=== PATIENT | male | born 1940 | race Caucasian/White ===

== ENCOUNTER 2020-05-09 21:49 | Inpatient (IN) | payer BC, MEDICARE ==
[~2020-05-09] VITALS: Ht 172.7 cm; Wt 66.2 kg
[2020-05-09] MEDS ORDERED: CEFTRIAXONE 1GM BAG (ER ONLY) 50 ML IV ONE ×2 (22:00→22:08)
[2020-05-09] MEDS ORDERED: LEVOFLOXACIN 750 MG /D5W 150ML 150 ML IV ONE ×2 (22:00→22:07)
[2020-05-09] MEDS ORDERED: LIDOCAINE 2% JEL UROJET 10 ML MM ONE ×2 (22:02→22:30)
[2020-05-09] MEDS ORDERED: IV NS 0.9% 1,000 ML BAG IV ONE (22:30)
[2020-05-09] MEDS ORDERED: METOPROLOL TARTRATE INJ 5 MG/5 ML AMPUL IV ONE (22:30)
[2020-05-09] MEDS ORDERED: ACETAMINOPHEN 650 MG/SUPP.RECT RC ONE ×2 (22:30→22:40)
[2020-05-09 22:39] LABS: CALCIUM, SERUM 8.1 mg/dL (8.5-10.1); CARBON DIOXIDE 24 mmol/L (21-32); CHLORIDE 102 mmol/L (98-107); CREATININE 2.3 mg/dL (0.6-1.3); GLUCOSE 85 mg/dL (74-106); POTASSIUM 3.3 mmol/L (3.5-5.1); SODIUM SERUM 137 mmol/L (136-145); UREA NITROGEN, BLOOD 33 mg/dL (7-18)
[2020-05-09 22:43] LABS: BILIRUBIN,URINE Negative (NEGATIVE); BLOOD, URINE Large Ery/uL (NEGATIVE); COLOR,URINE YELLOW (YELLOW); LEUKOCYTE ESTERASE ,URINE Moderate (NEGATIVE); NITRITE, URINE Negative (NEGATIVE); PROTEIN,URINE 30 mg/dl (NEGATIVE); UGLUCOSE Negative (NEGATIVE); UROBILINOGEN,URINE 0.2 EU/dL (0.2)
[2020-05-09 22:55] LABS: ALANINE AMINOTRANSFERASE 21 U/L (12-78); ALKALINE PHOSPHATASE 100 U/L (46-116); ASPARTATE AMINOTRANSFERASE 34 U/L (15-37); B-TYPE NATRIURETIC PEPTIDE 41190 PG/ML (0-125); BASOPHILS # (AUTO) 0.2 /CMM (0.0-0.2); BASOPHILS % (AUTO) 0.9 % (0.0-2.0); BILIRUBIN,DIRECT 0.2 mg/dL (0.0-0.2); BILIRUBIN,TOTAL 0.4 mg/dL (0.2-1.0); HEMATOCRIT 28 % (39-51); HEMOGLOBIN 9.3 g/dL (13.5-17.5); LYMPHOCYTES # (AUTO) 0.3 /CMM (0.8-4.8); LYMPHOCYTES % (AUTO) 1.6 % (20.0-44.0); MEAN CORPUSCULAR HGB CONC 33 g/dl (31.0-36.0); MEAN CORPUSCULAR VOLUME 104 fL (80-96); MONOCYTES # (AUTO) 0.5 /CMM (0.1-1.30); MONOCYTES % (AUTO) 3.3 % (2.0-12.0); NEUTROPHILS # (AUTO) 15.2 /CMM (1.8-8.9); NEUTROPHILS % (AUTO) 94.2 % (43.0-81.0); PLATELET COUNT (AUTO) 161 /CMM (150-450); RED BLOOD CELL COUNT(AUTO) 2.68 MIL/uL (4.5-6.0); TOTAL PROTEIN, SERUM 4.8 g/dL (6.4-8.2); WHITE BLOOD COUNT (AUTO) 16.2 K/uL (4.3-11.0)
--- NOTE | 2020-05-09 22:58 | NUR ---
PT BROUGHT BY RADIOLOGY TO CT PER ACLS PROTOCOL
[2020-05-09] MEDS ORDERED: ENOXAPARIN SODIUM 60 MG/0.6 ML DISP.SYRIN SQ ONE ×2 (23:00→23:53)
--- NOTE | 2020-05-09 23:03 | NUR ---
RETURNED FROM CT.
--- NOTE | 2020-05-09 23:07 | NUR ---
RT AT BEDSIDE FOR ABG
--- NOTE | 2020-05-09 23:10 | NUR ---
RAPID GLENIS PATTERSON MD AWARE
[2020-05-09 23:14] LABS: ABG BASE EXCESS -0.9 mmol/L; ABG OXYGEN SATURATION 95.5 % (92.0-98.5); ABG PCO2 28.9 mmHg (35.0-45.0); ABG PH 7.496 (7.350-7.450); ABG PO2 81.5 mmHg (75.0-100.0); AaDO2 98.4 mmHg; COHb 0.3 % (0.5-1.5); MetHb 0.5 % (0.0-1.5); O2Hb 94.7 % (94.0-97.0); SITE, ABG Right Radial; VENT MODE, BG 3 L NC
[2020-05-09 23:21] LABS: DIGOXIN 0.54 ng/mL (0.90-2.00); RBC,URINE 21-50 /HPF (0-2); WBC,URINE TOO NUMEROUS TO COUN /HPF (0-3)
[2020-05-09 23:22] LABS: BACTERIA,URINE 4+ /HPF (None Seen); SQUAMOUS EPITHELIAL CELL,UR Few /HPF (None Seen)
[2020-05-09 23:27] LABS: THYROID STIMULATING HORMONE 8.946 uIU/mL (0.358-3.74)
[2020-05-09] MEDS ORDERED: DIGOXIN INJ 0.5 MG/2 ML AMPUL ONE (23:49)
[2020-05-10] VITALS (77 sets, daily range): BP systolic 54–174; BP diastolic 33–94
[2020-05-10] MEDS ORDERED: DIGOXIN INJ 0.5 MG/2 ML AMPUL IV ONE
--- NOTE | 2020-05-10 00:54 | NUR ---
ICU 256
--- NOTE | 2020-05-10 00:58 | NUR ---
AT BEDSIDE FOR CENTRAL LINE PLACEMENT.
[2020-05-10] MEDS ORDERED: IV NS 0.9% 1,000 ML IV PRN (01:00)
[2020-05-10] MEDS ORDERED: NOREPINEPHRINE 4 MG/4 ML AMPUL IV ONE ×3 (01:12→05:52)
--- NOTE | 2020-05-10 01:12 | NUR ---
CENTRAL LINE PLACEMENT AT RIGHT FEMORAL TRIPLE LUMEN.
[2020-05-10] MEDS: NOREPINEPHRINE 8 MG in IV NS 0.9% 250 ML IV PRN ×4 (01:20→08:36)
--- NOTE | 2020-05-10 01:37 | NUR ---
REPORT GIVEN TO MICHELLE BLACKWOOD FOR CHELSI.
--- NOTE | 2020-05-10 01:52 | NUR ---
PATIENT TAKEN UP TO ICU FOR CHELSI.
[2020-05-10] MEDS ORDERED: VANCOMYCIN 1 GM in IV D5W 250ml IV ONE (02:00)
--- NOTE | 2020-05-10 02:00 | NUR ---
RN ADMITTING NOTE RECEIVED PATIENT FROM ER VIA GURNEY; ADMITTING DIAGNOSIS OF SEPSIS WITH SEPTIC SHOCK, AND PNEUMONIA R/O COVID19; PCR RESULTS PENDING. PATIENT AWAKE, ALERT AND ORIENTED X2. DENIES PAIN. IN NO S/SX OF ACUTE DISTRESS AT THIS TIME. PATIENT'S BREATHING IS EVEN AND UNLABORED. PATIENT IS ON 4 L OF OXYGEN VIA NC; TOLERATING WELL.SATURATING 99% AT THE MOMENT. PATIENT ON BEDSIDE MONITOR READING AFIB UNCONTROLLED, HR IS 113. NOTED IV SITE AT LFA 18G, RAC 20G, AND TLC AT R FEMORAL,FLUSHING AND PATENT, WITH NOREPINEPHRINE INFUSING AT 1 MCG/KG/MIN. NO S/S OF INFECTION NOTED. NOTED BRUISING AT B SHOULDERS AND CHEST AREA, DTI AT L HIP, REDNESS AT SACRUM, AND ULCER AT TIP OF PENIS. PHOTOS TAKEN AND PLACED IN CHART. WOUND CONSULT REQUESTED. PATIENT KEPT CLEAN , DRY AND COMFORTABLE. SAFETY MEASURES IMPLEMENTED PER PROTOCOL. PATIENT BED ALARM IS ON. HEAD OF BED ELEVATED. BED IS LOCKED, IN LOWEST POSITION AND SIDE RAILS UP. CALL LIGHT WITHIN REACH OF THE PATIENT. APPROPRIATE ISOLATION PRECAUTIONS IN PLACE. WILL CONTINUE TO MONITOR AND REASSESS FOR ANY CHANGES. WILL ATTEND TO ALL MD ADMITTING ORDERS.
[2020-05-10] MEDS ORDERED: VANCOMYCIN 1 GM VIAL ONE (02:37)
[2020-05-10] MEDS ORDERED: NOREPINEPHRINE 8MG/250ML RTU 250 ML IV ONE (03:09)
[2020-05-10] MEDS ORDERED: PIPERACILLIN /TAZOBACTAM 3.375 G VIAL IV ONE (05:09)
[2020-05-10] MEDS ORDERED: PIPERACILLIN /TAZOBACTAM 3.375 G in IV D5W 50 ML IV ONE (06:00)
--- NOTE | 2020-05-10 07:15 | NUR ---
RN NOTE PATIENT REMAINS IN ROOM. NO SIGNS OF RESPIRATORY DISTRESS. SATURATING >95 ON 4L OXYGEN. NOREPINEPHRINE INFUSING AT 0.7 MCG/KG, AND NS AT 70 ML/HR. NPO STATUS MAINTAINED. SAFETY MEASURES IMPLEMENTED, BED IN LOWEST POSITION, LOCKED, SIDE RAILS UP, CALL LIGHT WITHIN REACH. ALL NEEDS AND ORDERS ADDRESSED DURING THE SHIFT. ALL DUE MEDS GIVEN ORDERED. PATIENT KEPT CLEAN AND COMFORTABLE WITHIN THE SHIFT. ENDORSED TO ALEX BOWMAN RN FOR CONTINUATION OF CARE.
--- NOTE | 2020-05-10 08:00 | NUR ---
RN NOTE PATIENT IN BED . SLEEPING BUT AROUSABLE, RESPONSE TO VERBAL COMMAND NO SIGNS OF RESPIRATORY DISTRESS. SATURATING 99% ON 4L OXYGEN. NOREPINEPHRINE INFUSING AT 0.7 MCG/KG, AND NS AT 70 ML/HR. NPO STATUS MAINTAINED. SAFETY MEASURES IMPLEMENTED, BED IN LOWEST POSITION, LOCKED, SIDE RAILS UP, CALL LIGHT WITHIN REACH. PATIENT KEPT CLEAN AND COMFORTABLE ON TELE MONITOR AFIB HR 116 WITH AGRCIA CATH TO GRAVITY WITH HEMATURIA NOTED , STILL BLEEDING AT PENIS NOTED , BOTH LOWER EXTREMITIES WITH EDEMA KEEP ELEVATED TOLERATED, LT FA RT AC RT FEMORAL TLC I PLACE AND FLUSHED WELL, ON LEVOPHED DRIP ORDERED REPORTED TO DR BARGER THAT TROPONIN .384 AND ON EPIQUIN PO UNABLE TO TAKE PO AT THIS TIME, ON NPO STATUS , WILL CONT TO MONITOR
[2020-05-10] MEDS: PANTOPRAZOLE 40 MG VIAL IV SCH (08:01)
[2020-05-10] MEDS ORDERED: ACET-2605 PO (08:52)
[2020-05-10] MEDS ORDERED: AMIN30LI2 PO (08:52)
[2020-05-10] MEDS ORDERED: LEVO50TA8 PO (08:52)
[2020-05-10] MEDS ORDERED: ACID1TAB12 PO (08:52)
[2020-05-10] MEDS ORDERED: APIX5TAB PO (08:52)
[2020-05-10] MEDS ORDERED: ACET-868 PO (08:52)
[2020-05-10] MEDS ORDERED: DOCU-141 PO (08:52)
[2020-05-10] MEDS ORDERED: TAMS-12 PO (08:52)
[2020-05-10] MEDS ORDERED: DIGO125T PO (08:52)
[2020-05-10] MEDS ORDERED: CRAN425C6 PO (08:52)
[2020-05-10] MEDS ORDERED: HYDR-4076 PO (08:52)
[2020-05-10] MEDS ORDERED: APIXABAN 5 MG TABLET PO SCH (09:00)
[2020-05-10] MEDS: HYDROCORTISONE SOD SUCCINATE 100 MG/2 ML VIAL IV SCH ×2 (09:21→12:47)
[2020-05-10] MEDS: ENOXAPARIN SODIUM 60 MG/0.6 ML DISP.SYRIN SQ SCH (09:22)
[2020-05-10] MEDS: PIPERACILLIN /TAZOBACTAM 3.375 G in IV D5W 50 ML IV SCH ×3 (11:01→23:40)
--- NOTE | 2020-05-10 12:00 | NUR ---
landscape horticulture instructor note dr Acuna at bedside, notified that bp 82/58 on Levophed drip with order to cont Levophed with titration keep map 65, aware that trop .384 and urine with cloudy and hematuria and some blood at penis area, phone number of daughter Angeles given to dr Acuna, he will call her per her request
--- NOTE | 2020-05-10 14:00 | NUR ---
AVIAN KEEPER NOTE REPORTED TO DR DAVIS TELEMARKETING SUPERVISOR THAT URINE OUT PUT ABOUT 100 ML WITH CLOUDY HEMATURIA STATED THAT WILL CHECK IT OUT
--- NOTE | 2020-05-10 14:40 | NUR ---
OPTOMETRIST PRESIDENT/PRACTICE OWNER NOTE REPORTED TO DR BARGER CORTISOL LEVEL 71.5 ORDERED TO Riya SIMEON,ORDER CARRIED OUT
[2020-05-10 15:12] LABS: RED BLOOD CELL COUNT(AUTO) 2.29 MIL/uL (4.5-6.0)
[2020-05-10 15:16] LABS: BASOPHILS # (AUTO) 0.1 /CMM (0.0-0.2); BASOPHILS % (AUTO) 0.2 % (0.0-2.0); EOSINOPHILS % (AUTO) 0.4 % (0.0-6.0); HEMATOCRIT 24 % (39-51); HEMOGLOBIN 7.8 g/dL (13.5-17.5); LYMPHOCYTES # (AUTO) 1.2 /CMM (0.8-4.8); LYMPHOCYTES % (AUTO) 3.5 % (20.0-44.0); MEAN CORPUSCULAR HGB CONC 33 g/dl (31.0-36.0); MEAN CORPUSCULAR VOLUME 103 fL (80-96); MONOCYTES # (AUTO) 0.9 /CMM (0.1-1.30); MONOCYTES % (AUTO) 2.8 % (2.0-12.0); NEUTROPHILS # (AUTO) 31.3 /CMM (1.8-8.9); NEUTROPHILS % (AUTO) 93.1 % (43.0-81.0); PLATELET COUNT (AUTO) 131 /CMM (150-450)
[2020-05-10 15:22] LABS: WHITE BLOOD COUNT (AUTO) 33.6 K/uL (4.3-11.0)
[2020-05-10 15:24] LABS: ALANINE AMINOTRANSFERASE 33 U/L (12-78); ALBUMIN 1.7 g/dL (3.4-5.0); ALKALINE PHOSPHATASE 73 U/L (46-116); ASPARTATE AMINOTRANSFERASE 60 U/L (15-37); BILIRUBIN,TOTAL 0.6 mg/dL (0.2-1.0); CALCIUM, SERUM 6.4 mg/dL (8.5-10.1); CARBON DIOXIDE 21 mmol/L (21-32); CHLORIDE 107 mmol/L (98-107); CREATININE 2.1 mg/dL (0.6-1.3); GLUCOSE 78 mg/dL (74-106); MAGNESIUM 1.7 mg/dL (1.8-2.4); PHOSPHORUS 3.7 mg/dL (2.5-4.9); SODIUM SERUM 140 mmol/L (136-145); TOTAL PROTEIN, SERUM 4.3 g/dL (6.4-8.2); UREA NITROGEN, BLOOD 34 mg/dL (7-18)
[2020-05-10 15:45] LABS: BASOPHILS # (AUTO) 0.1 /CMM (0.0-0.2); BASOPHILS % (AUTO) 0.3 % (0.0-2.0); EOSINOPHILS % (AUTO) 0.5 % (0.0-6.0); HEMATOCRIT 27 % (39-51); HEMOGLOBIN 9.1 g/dL (13.5-17.5); LYMPHOCYTES # (AUTO) 1.1 /CMM (0.8-4.8); LYMPHOCYTES % (AUTO) 2.9 % (20.0-44.0); MEAN CORPUSCULAR HGB CONC 33 g/dl (31.0-36.0); MEAN CORPUSCULAR VOLUME 103 fL (80-96); MONOCYTES # (AUTO) 1.1 /CMM (0.1-1.30); MONOCYTES % (AUTO) 2.9 % (2.0-12.0); NEUTROPHILS # (AUTO) 35.7 /CMM (1.8-8.9); NEUTROPHILS % (AUTO) 93.4 % (43.0-81.0); PLATELET COUNT (AUTO) 137 /CMM (150-450); RED BLOOD CELL COUNT(AUTO) 2.66 MIL/uL (4.5-6.0)
[2020-05-10 15:49] LABS: WHITE BLOOD COUNT (AUTO) 38.2 K/uL (4.3-11.0)
[2020-05-10 16:06] LABS: BAND % (MANUAL) 6 % (0.0-5.0); LYMPHOCYTES % (MANUAL) 4 % (16-48); MONOCYTES % (MANUAL) 4 % (0-11.0); MYELOCYTES % 8 % (0-0); NEUTROPHILS % (MANUAL) 78 (42-76)
--- NOTE | 2020-05-10 16:30 | NUR ---
PIG MACHINE CRANE OPERATOR NOTE WBC REPEAT 38.[address] CHAMBERS WITH ORDER C DIF STOOL, AWARE THAT PATIENT ON ZOSYN AND VANCO, NO FEVER AT THIS TIME, CALLED TO [facility], NO BED [facility] AVAILABLE YET , WILL F\U
[2020-05-10] MEDS: NOREPINEPHRINE 32 MG in IV NS 0.9% 218 ML IV PRN (17:22)
--- NOTE | 2020-05-10 18:30 | NUR ---
MANAGER FINANCIAL NOTE KIDNEY US DONE ORDERED
[2020-05-10] MEDS: IV NS 0.9% 1,000 ML IV PRN (18:36)
--- NOTE | 2020-05-10 20:00 | NUR ---
RN NOTE PT RECEIVED IN BED RESTING, A/O X2, ON 4 L O2 VIA NC SATING ABOVE 95%. PT HAS UNLABORED BREATHING. SAFETY MEASURES IN PLACE
[2020-05-10 20:26] LABS: BILIRUBIN,URINE NEGATIVE (NEGATIVE); BLOOD, URINE LARGE Ery/uL (NEGATIVE); COLOR,URINE YELLOW (YELLOW); LEUKOCYTE ESTERASE ,URINE MODERATE (NEGATIVE); NITRITE, URINE NEGATIVE (NEGATIVE); PROTEIN,URINE 100 mg/dl (NEGATIVE); UGLUCOSE NEGATIVE (NEGATIVE); UROBILINOGEN,URINE 0.2 EU/dL (0.2)
[2020-05-10 20:27] LABS: CREATININE, URINE 103.8 MG/DL (30.0-125.0); URINE TOTAL PROTEIN 223.5 mg/dL (0-11.9)
[2020-05-10 20:42] LABS: RBC,URINE 21-50 /HPF (0-2)
[2020-05-10 20:43] LABS: BACTERIA,URINE 4+ /HPF (None Seen); COARSE GRANULAR CASTS,URINE Few /LPF (None Seen); SQUAMOUS EPITHELIAL CELL,UR 0-2 /HPF (None Seen); URINE AMORPHOUS URATE Few /HPF (None Seen); WBC,URINE TOO NUMEROUS TO COUN /HPF (0-3)
[2020-05-10] MEDS: LORAZEPAM INJ 2 MG/ML VIAL IV PRN (20:48)
[2020-05-10 21:20] LABS: EOSINOPHIL,URINE None Seen
[2020-05-11] VITALS (93 sets, daily range): BP systolic 86–141; BP diastolic 49–105
[2020-05-11] MEDS ORDERED: VANCOMYCIN 1 GM in IV D5W 250 ML IV SCH (02:00)
[2020-05-11] MEDS: LORAZEPAM INJ 2 MG/ML VIAL IV PRN (03:22)
[2020-05-11 05:11] LABS: EOSINOPHILS % (AUTO) 0.4 % (0.0-6.0); HEMATOCRIT 27 % (39-51); LYMPHOCYTES # (AUTO) 0.6 /CMM (0.8-4.8); LYMPHOCYTES % (AUTO) 1.5 % (20.0-44.0); MEAN CORPUSCULAR HGB CONC 34 g/dl (31.0-36.0); MEAN CORPUSCULAR VOLUME 103 fL (80-96); MONOCYTES % (AUTO) 2.5 % (2.0-12.0); NEUTROPHILS # (AUTO) 38.7 /CMM (1.8-8.9); NEUTROPHILS % (AUTO) 95.6 % (43.0-81.0); PLATELET COUNT (AUTO) 106 /CMM (150-450)
[2020-05-11 05:14] LABS: WHITE BLOOD COUNT (AUTO) 40.5 K/uL (4.3-11.0)
[2020-05-11 05:27] LABS: ALANINE AMINOTRANSFERASE 37 U/L (12-78); ALBUMIN 1.8 g/dL (3.4-5.0); ALKALINE PHOSPHATASE 103 U/L (46-116); ASPARTATE AMINOTRANSFERASE 52 U/L (15-37); BILIRUBIN,TOTAL 0.6 mg/dL (0.2-1.0); CALCIUM, SERUM 6.8 mg/dL (8.5-10.1); CARBON DIOXIDE 20 mmol/L (21-32); CHLORIDE 104 mmol/L (98-107); CREATININE 2.3 mg/dL (0.6-1.3); GLUCOSE 105 mg/dL (74-106); MAGNESIUM 1.9 mg/dL (1.8-2.4); PHOSPHORUS 4.1 mg/dL (2.5-4.9); POTASSIUM 3.1 mmol/L (3.5-5.1); SODIUM SERUM 139 mmol/L (136-145); TOTAL PROTEIN, SERUM 4.9 g/dL (6.4-8.2)
[2020-05-11 05:29] LABS: CREATINE KINASE, TOTAL 184 U/L (39-308)
--- NOTE | 2020-05-11 05:30 | NUR ---
RN NOTE RECEIVED CRITICAL LAB WBC 40.5 , REPORTED TO OLIVE TOUR CONDUCTOR NO FURTHER ORDER GIVEN. PER OLIVE FOLLOW UP WITH ID IN THE MORNING.
[2020-05-11 05:38] LABS: LYMPHOCYTES % (MANUAL) 3 % (16-48); MONOCYTES % (MANUAL) 4 % (0-11.0); NEUTROPHILS % (MANUAL) 93 (42-76)
[2020-05-11 05:39] LABS: UREA NITROGEN, BLOOD 44 mg/dL (7-18)
[2020-05-11] MEDS: PIPERACILLIN /TAZOBACTAM 3.375 G in IV D5W 50 ML IV SCH ×2 (06:10→11:34)
[2020-05-11] MEDS: NOREPINEPHRINE 32 MG in IV NS 0.9% 218 ML IV PRN ×2 (06:54→09:21)
--- NOTE | 2020-05-11 07:25 | NUR ---
RN NOTE PT REMAINED STABLE DURING MY SHIFT, NO ACUTE CHANGES REPORT GIVEN TO INCOMING SHIFT FOR CHELSI.
--- NOTE | 2020-05-11 07:40 | NUR ---
WOUND CARE CONSULT: REVIEWED CHART, NURSING DOCUMENTATION AND PHOTOS WHICH INDICATE SCARRING AND INTACT DEEP TISSUE INJURY TO SACRUM, LEFT HIP INTACT DEEP TISSUE INJURY AND PENIS WOUND, ALL PRESENT ON ADMISSION. RECOMMEND SURGICAL CONSULT. DR VILLANUEVA NOTIFIED OF CONSULT REQUEST. SKIN PROTECTION RECOMMENDATIONS DISCUSSED WITH NURSING STAFF. MD IN AGREEMENT WITH PLAN OF CARE. FIRST STEP LOW AIRLOSS MATTRESS IS ON ORDER.
[2020-05-11] MEDS ORDERED: Z GUARD REMEDY 2 OZ OINT TP PRN (08:00)
--- NOTE | 2020-05-11 08:00 | NUR ---
RN NOTES RECEIVED PATIENT IN BED, ON 02-4L NC 99%, NO ACUTE RESPIRATORY DISTRESS AT THIS TIME, AROUSE, OPEN EYES, WITH CONFUSION, AFIB UNSTABLE 89 TO 100. SURROUNDING ORIENTED, V/S STABLE, FOLLOW VERBAL COMMANDS. NOREPINEPHRINE INFUSING AT 0.4MCG/KG AT THIS TIME., AND NS AT 75ML/HR. PATIENT NPO . WRIST REFRAIN RECHECKED FOR CIRCULATION Q 2 HR, PATIENT HAS EDEMA BLE, ELEVATED USING PILLOWS. SAFETY MEASURES IMPLEMENTED, BED IN LOWEST POSITION, LOCKED, SIDE RAILS UP, CALL LIGHT WITHIN REACH. PATIENT KEPT CLEAN AND COMFORTABLE. GARCIA CATH TO GRAVITY WITH YELLOW OUTPUT. RT FEMORAL TLC IS FLASHED WELL. WILL CONTINUED MONITORING.
[2020-05-11] MEDS ORDERED: FUROSEMIDE 20 MG/2 ML VIAL IV SCH (08:30)
[2020-05-11] MEDS: LEVOTHYROXINE SODIUM 50 MCG TABLET PO SCH (08:50)
[2020-05-11] MEDS: PANTOPRAZOLE 40 MG VIAL IV SCH (08:50)
[2020-05-11] MEDS: ENOXAPARIN SODIUM 60 MG/0.6 ML DISP.SYRIN SQ SCH (08:50)
[2020-05-11] MEDS: Z GUARD REMEDY 2 OZ OINT TP SCH (08:52)
[2020-05-11] MEDS ORDERED: FUROSEMIDE 40 MG/4 ML VIAL IV ONE (09:00)
--- NOTE | 2020-05-11 09:21 | NUR ---
RN NOTES TITRATED LEVOPHED 0.3 AT THIS TIME BP 129/94, P-113, R-18, PATIENT FAIL SWALLOW EVALUATION AT THIS TIME KEEP NPO EXCEPT MEDS. SE WILL FOLLOW TOMORROW. PATIENT ANXIOUS, YELLING, DISCOLORATION ON ENTIRE BODY, KEEP HOB ELEVATED FOR ASPIRATION PRECAUTION. SCHEDULED MEDICATION ADMINISTERED.
[2020-05-11] MEDS: IV NS 0.9% 1,000 ML IV PRN (09:32)
[2020-05-11] MEDS: POTASSIUM CL. PREMIX PERIPHER. 50 ML IV SCH ×3 (12:10→13:40)
--- NOTE | 2020-05-11 17:01 | NUR ---
rn notes patient on low air special mattress.
--- NOTE | 2020-05-11 17:17 | NUR ---
RN NOTE Called [facility] to F/U with BC result(prelim), said they find positive to microorganism but not verified when checked again on the slide, specimen was sent out and may have prelim tonight, made ID aware. Also tried to call [facility], per nurse, she will search for BC result and will fax if there is, fax number given. Made ID aware.
--- NOTE | 2020-05-11 18:29 | NUR ---
RN NOTES PM CARE DONE , DUE MEDICATION ADMINISTERED, PATIENT NPO EXCEPT MEDS. CONTINUED PRECAUTION COVED-19 PENDING RESULT, RECHECKED CIRCULATION ON SOFT RESTRAIN Q2 HR. PATIENT CALM, NO ACUTE RESPIRATORY DISTRESS, INFUSING LEVOPHED 0.1 MCG, AND NS AT 75 ML/HR AT THIS TIME, GARCIA CATHETER DRAINING LIGHT YELLOW OUTPUT WITH SEDIMENTS. ASSIST TURN AND REPOSITION Q 2 HR . ENDORSED ONCOMING NURSE FOLLOW POC.
[2020-05-11] MEDS: MEROPENEM 500 MG in IV NS 0.9% 50 ML IV SCH (20:26)
[2020-05-12] VITALS (96 sets, daily range): BP systolic 78–136; BP diastolic 48–96
[2020-05-12] MEDS ORDERED: VANCOMYCIN 0.75 GM in IV D5W 250 ML IV SCH (02:00)
[2020-05-12] MEDS: IV NS 0.9% 1,000 ML IV PRN ×2 (02:57→17:13)
[2020-05-12 04:37] LABS: BASOPHILS % (AUTO) 0.1 % (0.0-2.0); EOSINOPHILS % (AUTO) 0.4 % (0.0-6.0); HEMATOCRIT 25 % (39-51); HEMOGLOBIN 8.3 g/dL (13.5-17.5); LYMPHOCYTES # (AUTO) 0.8 /CMM (0.8-4.8); LYMPHOCYTES % (AUTO) 2.4 % (20.0-44.0); MEAN CORPUSCULAR HGB CONC 33 g/dl (31.0-36.0); MEAN CORPUSCULAR VOLUME 102 fL (80-96); MONOCYTES # (AUTO) 0.9 /CMM (0.1-1.30); MONOCYTES % (AUTO) 2.7 % (2.0-12.0); NEUTROPHILS # (AUTO) 32.3 /CMM (1.8-8.9); NEUTROPHILS % (AUTO) 94.4 % (43.0-81.0); PLATELET COUNT (AUTO) 64 /CMM (150-450); RED BLOOD CELL COUNT(AUTO) 2.45 MIL/uL (4.5-6.0)
[2020-05-12 04:40] LABS: WHITE BLOOD COUNT (AUTO) 34.3 K/uL (4.3-11.0)
[2020-05-12 04:45] LABS: CALCIUM, SERUM 6.5 mg/dL (8.5-10.1); CARBON DIOXIDE 21 mmol/L (21-32); CHLORIDE 107 mmol/L (98-107); CREATININE 2.2 mg/dL (0.6-1.3); GLUCOSE 102 mg/dL (74-106); MAGNESIUM 1.9 mg/dL (1.8-2.4); PHOSPHORUS 3.8 mg/dL (2.5-4.9); SODIUM SERUM 140 mmol/L (136-145); UREA NITROGEN, BLOOD 45 mg/dL (7-18)
[2020-05-12 04:51] LABS: POTASSIUM 2.7 mmol/L (3.5-5.1)
[2020-05-12 04:58] LABS: BAND % (MANUAL) 2 % (0.0-5.0); LYMPHOCYTES % (MANUAL) 2 % (16-48); MONOCYTES % (MANUAL) 3 % (0-11.0); NEUTROPHILS % (MANUAL) 93 (42-76)
[2020-05-12] MEDS: NOREPINEPHRINE 32 MG in IV NS 0.9% 218 ML IV PRN ×3 (05:00→21:05)
--- NOTE | 2020-05-12 05:15 | NUR ---
CRITICAL LAB POTASSIUM IS 2.7 REPORTED TO OLIVE DOWNEY. ORDERS FOR KCL 10 MEQ X4 GIVEN.
[2020-05-12] MEDS: POTASSIUM CL. PREMIX PERIPHER. 50 ML IV SCH ×4 (05:29→09:04)
--- NOTE | 2020-05-12 06:58 | NUR ---
ENDORSED PATIENT TO MORNING SHIFT NURSE. PATIENT SATURATING WELL ON 4L NC WITH NO SIGN OF ANY RESPIRATORY DISTRESS. PATIENT STILL AFIB ON THE MONITOR BUT CONTROLLED. PATIENT RESTING IN BED WITH NO DISTRESS.
--- NOTE | 2020-05-12 07:15 | NUR ---
STREET CLEANER NOTE RECEIVED PT IN BED RESTING COMFORTABLY IN MODERATE HIGH BACK REST. A/O X1. ON 4LPM VIA NC SATING @100%. NO SIGNS OF DISTRESS NOTED AT THIS TIME. NS RUNNING AT 75ML/HR AND LEVO 0.1 MCG/KG/MIN. NOTED WITH SOFT MUKESH WRIST RESTRAINTS ON. CIRCULATION CHECKED. GARCIA CATH IN PLACE, DRAINING WITH CLEAR YELLOW URINE. SIDE RAILS UP X 2, BED IS LOCKED IN LOWEST POSITION WITH ALARM ON. WILL CONTINUE TO MONITOR.
[2020-05-12] MEDS: LEVOTHYROXINE SODIUM 50 MCG TABLET PO SCH (07:30)
[2020-05-12] MEDS: PANTOPRAZOLE 40 MG VIAL IV SCH (08:25)
[2020-05-12] MEDS: ENOXAPARIN SODIUM 30 MG/0.3 ML DISP.SYRIN SQ SCH (08:26)
[2020-05-12] MEDS: Z GUARD REMEDY 2 OZ OINT TP SCH (08:26)
[2020-05-12] MEDS: MEROPENEM 500 MG in IV NS 0.9% 50 ML IV SCH ×2 (08:32→20:12)
--- NOTE | 2020-05-12 09:00 | NUR ---
RN NOTES MD NOTIFIED REGARDING LOW PLATELET, HELD LOVENOX. WILL CONTINUE TO MONITOR.
[2020-05-12] MEDS ORDERED: POTASSIUM CHLORIDE 20 MEQ TAB.PRT.SR PO SCH (10:00)
[2020-05-12] MEDS: Potassium Chloride 10 MEQ in IV D5W 50 ML IV SCH ×10 (10:22→19:44)
--- NOTE | 2020-05-12 19:15 | NUR ---
INTERIOR ASSEMBLIES DEVELOPER PROVER NOTE PT IN BED RESTING COMFORTABLY IN MODERATE HIGH BACK REST. A/O X1. ON 4LPM VIA NC SATING @100%. NO SIGNS OF DISTRESS NOTED. NS RUNNING AT 75ML/HR AND LEVO 0.2 MCG/KG/MIN. NOTED WITH SOFT MUKESH WRIST RESTRAINTS ON. CIRCULATION CHECKED. GARCIA CATH IN PLACE, DRAINING WITH CLEAR YELLOW URINE. ALL DUE MEDS GIVEN, SIDE RAILS UP X 2, BED IS LOCKED IN LOWEST POSITION WITH ALARM ON. ENDORSED TO HEALTH POLICY ANALYST NURSE FOR CHELSI.
--- NOTE | 2020-05-12 19:30 | NUR ---
QUALITY PROCESS AUDITOR INITIAL SHIFT NOTES RECEIVED PATIENT IN BED, AWAKE, ALERT X1-2 TO SELF, DISORIENTED. ON O2 VIA NC @ 4LPM, TOLERATING WELL, FREE FROM ANY SIGNS AND SYMPTOMS OF ACUTE RESPIRATORY DISTRESS. BEDSIDE PLUMBER'S ASSISTANT READS AFIB, RATE CONTROLLED 80-99 BPM. GARCIA CATHETER PATENT AND INTACT, DRAINING YELLOW URINE VIA GRAVITY. PATIENT WITH POOR APPETITE, REFUSING DINNER. RIGHT FEMORAL TLC PATENT AND INTACT, ALL PORTS FLUSHED WITH NS, FREE FROM ANY SIGNS AND SYMPTOMS OF INFILTRATION OR PHLEBITIS. CALL LIGHT WITHIN EASY REACH, BED IN LOWEST AND LOCKED POSITON. WILL MONITOR CLOSELY
[2020-05-12] MEDS: LORAZEPAM INJ 2 MG/ML VIAL IV PRN (20:15)
--- NOTE | 2020-05-12 20:30 | NUR ---
BOILER ERECTOR NOTES PATIENT NOTED TO BE RESTLESS, AGITATED, YELLING. ATIVAN ADMISNITERED ORDERED. WILL MONITOR CLOSELY
[2020-05-13] VITALS (102 sets, daily range): BP systolic 75–196; BP diastolic 42–115
--- NOTE | 2020-05-13 04:00 | NUR ---
SCOURING MACHINE TENDER NOTES FULL BEDBATH RENDERED. PATIENT NOTED WITH BM X1, YOVANNY EXISTING ORDER TO COLLECT STOOL FOR CDIFF. STOOL FORMED AND MUCOID, NON-DIARRHEA. STOOL NOT COLLECTED AND SENT TO LAB PER PROTOCOL
[2020-05-13 04:33] LABS: BASOPHILS % (AUTO) 0.1 % (0.0-2.0); EOSINOPHILS % (AUTO) 1.3 % (0.0-6.0); HEMATOCRIT 28 % (39-51); HEMOGLOBIN 9.4 g/dL (13.5-17.5); LYMPHOCYTES # (AUTO) 0.7 /CMM (0.8-4.8); LYMPHOCYTES % (AUTO) 3.8 % (20.0-44.0); MEAN CORPUSCULAR HGB CONC 33 g/dl (31.0-36.0); MEAN CORPUSCULAR VOLUME 103 fL (80-96); MONOCYTES % (AUTO) 5.5 % (2.0-12.0); NEUTROPHILS # (AUTO) 16.2 /CMM (1.8-8.9); NEUTROPHILS % (AUTO) 89.3 % (43.0-81.0); PLATELET COUNT (AUTO) 52 /CMM (150-450); RED BLOOD CELL COUNT(AUTO) 2.76 MIL/uL (4.5-6.0); WHITE BLOOD COUNT (AUTO) 18.2 K/uL (4.3-11.0)
[2020-05-13 04:45] LABS: CALCIUM, SERUM 6.9 mg/dL (8.5-10.1); CARBON DIOXIDE 21 mmol/L (21-32); CHLORIDE 110 mmol/L (98-107); CREATININE 1.8 mg/dL (0.6-1.3); GLUCOSE 101 mg/dL (74-106); MAGNESIUM 1.8 mg/dL (1.8-2.4); PHOSPHORUS 2.6 mg/dL (2.5-4.9); SODIUM SERUM 141 mmol/L (136-145); UREA NITROGEN, BLOOD 41 mg/dL (7-18)
[2020-05-13 04:57] LABS: LYMPHOCYTES % (MANUAL) 4 % (16-48); MONOCYTES % (MANUAL) 6 % (0-11.0); NEUTROPHILS % (MANUAL) 90 (42-76)
--- NOTE | 2020-05-13 07:00 | NUR ---
SEISMIC OBSERVER CLOSING NOTES PATIENT RESTING COMFORTABLY IN BED. NO ACUTE CHANGES NOTED THROUGHOUT SHIFT. WILL ENDORSE PATIENT TO THE AM SHIFT NURSE FOR CONTINUITY OF CARE
[2020-05-13] MEDS: IV NS 0.9% 1,000 ML IV PRN ×2 (07:07→18:41)
--- NOTE | 2020-05-13 07:15 | NUR ---
WHEEL BRAIDER NOTE RECEIVED PT IN BED RESTING COMFORTABLY IN MODERATE HIGH BACK REST. A/O X1. ON 4LPM VIA NC SATING @100%. NO SIGNS OF DISTRESS NOTED AT THIS TIME. NS RUNNING AT 75ML/HR AND LEVO 0.1 MCG/KG/MIN. NOTED WITH SOFT MUKESH WRIST RESTRAINTS ON. CIRCULATION CHECKED. GARCIA CATH IN PLACE, DRAINING WITH CLEAR YELLOW URINE, CONTACT ISOLATION MAINTAINED. SIDE RAILS UP X 2, BED IS LOCKED IN LOWEST POSITION WITH ALARM ON. WILL CONTINUE TO MONITOR.
[2020-05-13] MEDS: LEVOTHYROXINE SODIUM 50 MCG TABLET PO SCH (07:36)
[2020-05-13] MEDS: MEROPENEM 500 MG in IV NS 0.9% 50 ML IV SCH ×2 (08:14→21:09)
[2020-05-13] MEDS: PANTOPRAZOLE 40 MG VIAL IV SCH (08:15)
[2020-05-13] MEDS: Z GUARD REMEDY 2 OZ OINT TP SCH (08:17)
[2020-05-13] MEDS: ENOXAPARIN SODIUM 30 MG/0.3 ML DISP.SYRIN SQ SCH (08:18)
--- NOTE | 2020-05-13 08:18 | NUR ---
RN NOTES LOVENOX WAS HELD, PLATELET OF 52, NOTIFIED. WILL CONTINUE TO MONITOR.
[2020-05-13] MEDS: NOREPINEPHRINE 32 MG in IV NS 0.9% 218 ML IV PRN (09:48)
[2020-05-13] MEDS: LORAZEPAM INJ 2 MG/ML VIAL IV PRN (10:44)
--- NOTE | 2020-05-13 15:00 | NUR ---
RN NOTES SPOKE TO PHARMACIST CAIO, SHE SAID TO CHANGE LEVO TO 8MG CONCENTRATION INSTEAD OF 32 MG SINCE WE ARE GIVING LOW DOSE, THEY WILL SEND THE MEDICATION WHEN READY, CAN RUN THE CURRENT LEVO UNTIL EXPIRATION. WILL F/U AND CONTINUE TO MONITOR.
[2020-05-13] MEDS: NOREPINEPHRINE 8 MG in IV NS 0.9% 242 ML IV PRN (15:55)
--- NOTE | 2020-05-13 19:00 | NUR ---
ROVING TESTER LABORATORY NOTE PT IN BED RESTING COMFORTABLY IN MODERATE HIGH BACK REST. A/O X1. ON 2LPM VIA NC SATING @98%. NO SIGNS OF DISTRESS NOTED. NS RUNNING AT 75ML/HR. NOTED WITH SOFT MUKESH WRIST RESTRAINTS ON. CIRCULATION CHECKED. GARCIA CATH IN PLACE, DRAINING WITH CLEAR YELLOW URINE. ALL DUE MEDS GIVEN, SIDE RAILS UP X 2, BED IS LOCKED IN LOWEST POSITION WITH ALARM ON. WILL ENDORSE TO LARGE ANIMAL VETERINARIAN NURSE FOR CHELSI.
--- NOTE | 2020-05-13 20:00 | NUR ---
SETTER OFF NOTES FROM [id number], BP CONSISTENTLY LOW, SYSTOLIC IN THE 70s-80s. LEVOPHED DRIP RESUMED @ 0.1MCG/KG/MIN. HOWEVER, @ 0.1 MCG/KG/MIN, BP NOW ELEVATED TO 196/115. LEVOPHED DRIP TITRATED DOWN TO 0.01 MCG/KG/MIN TO MAINTAIN BLOOD PRESSURE
[2020-05-14] VITALS (90 sets, daily range): BP systolic 80–163; BP diastolic 49–108
--- NOTE | 2020-05-14 03:00 | NUR ---
WHEEL BUFFER NOTES PATIENT NOW MORE ALERT, ABLE TO CONVERSE WITH RN. UNDER CLOSE MONITORING, RESTRAINTS REMOVED. PATIENT VERBALIZING UNDERSTANDING TO NOT PULL AT IV LINE. IV SITE COVERED LIGHTLY WITH TOWEL TO PREVENT ACCIDENTAL PULLING. RIGHT FEMORAL TLC DRESSING CHANGED TO BEING SOILED. WILL MONITOR CLOSELY
[2020-05-14] MEDS: NOREPINEPHRINE 8 MG in IV NS 0.9% 242 ML IV PRN (04:02)
[2020-05-14 04:44] LABS: BASOPHILS % (AUTO) 0.2 % (0.0-2.0); EOSINOPHILS % (AUTO) 2.3 % (0.0-6.0); HEMATOCRIT 28 % (39-51); HEMOGLOBIN 9.3 g/dL (13.5-17.5); LYMPHOCYTES # (AUTO) 0.8 /CMM (0.8-4.8); LYMPHOCYTES % (AUTO) 5.7 % (20.0-44.0); MEAN CORPUSCULAR HGB CONC 34 g/dl (31.0-36.0); MEAN CORPUSCULAR VOLUME 102 fL (80-96); MONOCYTES # (AUTO) 0.8 /CMM (0.1-1.30); MONOCYTES % (AUTO) 6.2 % (2.0-12.0); NEUTROPHILS # (AUTO) 11.4 /CMM (1.8-8.9); NEUTROPHILS % (AUTO) 85.6 % (43.0-81.0); WHITE BLOOD COUNT (AUTO) 13.3 K/uL (4.3-11.0)
[2020-05-14 04:54] LABS: CARBON DIOXIDE 21 mmol/L (21-32); CHLORIDE 111 mmol/L (98-107); CREATININE 1.5 mg/dL (0.6-1.3); GLUCOSE 97 mg/dL (74-106); MAGNESIUM 1.7 mg/dL (1.8-2.4); PHOSPHORUS 2.1 mg/dL (2.5-4.9); POTASSIUM 3.4 mmol/L (3.5-5.1); SODIUM SERUM 141 mmol/L (136-145); UREA NITROGEN, BLOOD 37 mg/dL (7-18)
[2020-05-14 05:02] LABS: PLATELET COUNT (AUTO) 43 /CMM (150-450)
[2020-05-14 05:15] LABS: EOSINOPHILS % (MANUAL) 3 % (0-4); LYMPHOCYTES % (MANUAL) 6 % (16-48); MONOCYTES % (MANUAL) 10 % (0-11.0); NEUTROPHILS % (MANUAL) 81 (42-76)
[2020-05-14] MEDS: IV NS 0.9% 1,000 ML IV PRN (05:56)
--- NOTE | 2020-05-14 07:00 | NUR ---
RN NOTES RECEIVED PT ON BED, A/Ox3, ON 2L O2 N/C , O2 SAT WNL, ON TELE A.FIB HR IN 80'S , GARCIA DRAINING TO GRAVITY, R FEMORAL TLC SITE CLEAN, DRY AND INTACT, LEVO AT .01 MCG/KG/MIN , NS AT 75CC/HR RUNNING VIA R FEMORAL TLC SITE, SR UPx3, CALL LIGHT WITHIN EASY REACH, BED LOCKED AND IN LOWEST POSITION, CONTINUE TO MONITOR .
--- NOTE | 2020-05-14 07:00 | NUR ---
DYE WORKER NOTES PATIENT CONTINUES ON O2 VIA NC @ 2LPM, TOLERATING WELL, NO EPISODES OF DESATURATION NOTED. ALSO REMAINS ON LEVOPHED DRIP @ 0.01 MCG/KG/MIN, UNABLE TO TITRATE OFF SBP DROPS TO THE 70s. WILL ENDORSE THE PATIENT TO THE AM SHIFT NURSE FOR CONTINUITY OF CARE
[2020-05-14] MEDS ORDERED: DOSE PER PHARMACY (MD SPECIFY MEDICATION) 1 EA XX PRN (07:30)
[2020-05-14] MEDS: Z GUARD REMEDY 2 OZ OINT TP SCH (08:12)
[2020-05-14] MEDS: PANTOPRAZOLE 40 MG TABLET.DR PO SCH (08:12)
[2020-05-14] MEDS: LEVOTHYROXINE SODIUM 50 MCG TABLET PO SCH (08:12)
[2020-05-14] MEDS: MEROPENEM 1 G in IV NS 0.9% 100 ML IV SCH ×2 (08:33→21:14)
[2020-05-14] MEDS: POTASSIUM CHLORIDE 20 MEQ TAB.PRT.SR PO SCH ×3 (08:35→11:06)
[2020-05-14] MEDS: FUROSEMIDE 40 MG/4 ML VIAL IV SCH ×2 (08:37→11:57)
[2020-05-14] MEDS: Magnesium 1GM/D5W 100ML PREMIX 100 ML IV SCH ×2 (09:06→10:17)
--- NOTE | 2020-05-14 12:00 | NUR ---
RN NOTES VSS STABLE, CONTINUE TO MONITOR .
--- NOTE | 2020-05-14 14:00 | NUR ---
RN NOTES PT C/O MUKESH LOWER EXTREMITIES DURING TURNING AND REPOSITIONING, DR JONES AT THE BEDSIDE NOTIFED . NO NEW ORDER RECEIVED .CONTINUE TO MONITOR .
--- NOTE | 2020-05-14 15:00 | NUR ---
RN NOTES LEVO OFF AT THIS TIME , CONTINUE TO MONITOR .
[2020-05-14] MEDS ORDERED: NEUTRA PHOS 1 POWD.PACKET PO ONE (15:30)
--- NOTE | 2020-05-14 18:00 | NUR ---
RN NOTES LEVO DRIP STILL OFF , BP STABLE, NO SIGNIFICANT CHANGES NOTED ON THIS SHIFT, GARCIA DRAINING TO GRAVITY, SR UP x3, CALL LIGHT WITHIN EASY REACH, BED LOCKED AND IN LOWEST POSITION, WILL ENDORSE TO NURSING ASSISTANTS TEACHER NURSE FOR CONTINUITY OF CARE .
--- NOTE | 2020-05-14 19:45 | NUR ---
ICU/SPEECH PATHOLOGY ASSISTANT RECEIVED REPORT FROM DAY NURSE. SEE FLOWSHEET FOR ASSESSMENT,THERE ARE MANY SKIN ISSUES THAT ARE ADDRESSED ON FLOWSHEET ALONG WITH INTERVENTIONS. PT IS ALERT X3-4. PT IS 2 LITERS VIA N/C, TOLERATING THIS WELL WITH SATURATION AT 100%. PT WAS TURN AND REPOSITION FOR COMFORT AND CARE. WILL CONTINUE TO MONITOR THIS PT, NO ACUTE DISTRESS SEEN AT THIS TIME. AT THIS TIME LEVO HAS BEEN OFF SINCE 1500, WILL CONTINUE TO MONITOR THIS PT AND HIS BLOOD PRESSURE.
--- NOTE | 2020-05-14 22:10 | NUR ---
ICU/PHOTO CARTOGRAPHER PT WAS GIVEN ORAL CARE, THEN PROVIDED PM CARE, WHICH PT TOLERATED WELL. PT REMAINS ON CURRENT 2 LITERS N/C, WITH SATURATION AT 100%. PT WAS TURNED AND REPOSITIONED FOR COMFORT AND CARE. CALL LIGHT WITHIN REACH, NO ACUTE DISTRESS SEEN. WILL CONTINUE TO MONITOR THIS PT.
[2020-05-15] VITALS (25 sets, daily range): BP systolic 92–116; BP diastolic 51–87
--- NOTE | 2020-05-15 02:20 | NUR ---
ICU/WARP SPINNER PT WAS GIVEN ORAL CARE, THEN PROVIDED PM CARE, WHICH PT TOLERATED WELL. PT REMAINS ON CURRENT 2 LITERS N/C, WITH SATURATION AT 100%. PT WAS TURNED AND REPOSITIONED FOR COMFORT AND CARE. CALL LIGHT WITHIN REACH, NO ACUTE DISTRESS SEEN. WILL CONTINUE TO MONITOR THIS PT.
--- NOTE | 2020-05-15 04:00 | NUR ---
ICU/LEADITE HEATER AM LABS WERE DONE AWAIT FOR ANY CRITICAL RESULTS.
[2020-05-15 04:31] LABS: BASOPHILS % (AUTO) 0.2 % (0.0-2.0); EOSINOPHILS % (AUTO) 3.6 % (0.0-6.0); HEMATOCRIT 26 % (39-51); HEMOGLOBIN 8.7 g/dL (13.5-17.5); LYMPHOCYTES # (AUTO) 0.8 /CMM (0.8-4.8); LYMPHOCYTES % (AUTO) 6.9 % (20.0-44.0); MEAN CORPUSCULAR HGB CONC 33 g/dl (31.0-36.0); MEAN CORPUSCULAR VOLUME 102 fL (80-96); MONOCYTES % (AUTO) 8.5 % (2.0-12.0); NEUTROPHILS # (AUTO) 9.5 /CMM (1.8-8.9); NEUTROPHILS % (AUTO) 80.8 % (43.0-81.0); PLATELET COUNT (AUTO) 64 /CMM (150-450); RED BLOOD CELL COUNT(AUTO) 2.55 MIL/uL (4.5-6.0); WHITE BLOOD COUNT (AUTO) 11.8 K/uL (4.3-11.0)
[2020-05-15 04:48] LABS: ALANINE AMINOTRANSFERASE 16 U/L (12-78); ALBUMIN 1.6 g/dL (3.4-5.0); ALKALINE PHOSPHATASE 84 U/L (46-116); ASPARTATE AMINOTRANSFERASE 13 U/L (15-37); BILIRUBIN,TOTAL 0.4 mg/dL (0.2-1.0); CALCIUM, SERUM 7.4 mg/dL (8.5-10.1); CARBON DIOXIDE 23 mmol/L (21-32); CHLORIDE 111 mmol/L (98-107); CREATININE 1.4 mg/dL (0.6-1.3); GLUCOSE 89 mg/dL (74-106); MAGNESIUM 1.9 mg/dL (1.8-2.4); PHOSPHORUS 2.3 mg/dL (2.5-4.9); POTASSIUM 3.8 mmol/L (3.5-5.1); SODIUM SERUM 145 mmol/L (136-145); TOTAL PROTEIN, SERUM 4.1 g/dL (6.4-8.2); UREA NITROGEN, BLOOD 30 mg/dL (7-18)
[2020-05-15 05:11] LABS: EOSINOPHILS % (MANUAL) 3 % (0-4); LYMPHOCYTES % (MANUAL) 4 % (16-48); MONOCYTES % (MANUAL) 5 % (0-11.0); NEUTROPHILS % (MANUAL) 88 (42-76)
[2020-05-15] MEDS: LEVOTHYROXINE SODIUM 50 MCG TABLET PO SCH (07:55)
[2020-05-15] MEDS: PANTOPRAZOLE 40 MG TABLET.DR PO SCH (07:55)
[2020-05-15] MEDS ORDERED: K PHOS NEUTRAL 250 MG TABLET PO ONE (08:00)
--- NOTE | 2020-05-15 08:00 | NUR ---
SHEETER MACHINE OPERATOR NOTES RECEIVED PATIENT IN THE BED AWAKE A/O X3, ON O2-2L NC, NO ACUTE RESPIRATORY DISTRESS, V/S STABLE AT THIS TIME, PATIENT TOLERATED BREAKFAST WELL SELF. PATIENT HAS EDEMA BLE, DVT ON LEFT HIP, KEEP ELEVATED USING PILLOWS. DISCOLORATION ALL OVER THE BODY, ON SPECIAL AIR MATTRESS. INFUSING TKO ON RIGHT FA INTACT. AM SCHEDULED MEDICATION ADMINISTERED, ASSIST TURN AND REPOSTION Q 2 HR. PATIENT REFUSED PAIN AT THIS TIME. CALL LIGHT WITHIN TO REACH. WILL CONTINUED MONITORING.
[2020-05-15] MEDS: MEROPENEM 1 G in IV NS 0.9% 100 ML IV SCH ×2 (09:17→21:18)
[2020-05-15] MEDS: Z GUARD REMEDY 2 OZ OINT TP SCH (09:17)
--- NOTE | 2020-05-15 12:00 | NUR ---
RN NOTES PER Dr PETIT PATIENT STABLE TO TRANSFER TELE.
--- NOTE | 2020-05-15 13:00 | NUR ---
RN NOTES PATIENT STABLE TOLERATED LUNCH WELL, REFUSED PAIN, ASSIST TURN AND REPOSTION Q 2 HR.
--- NOTE | 2020-05-15 18:30 | NUR ---
RN NOTES PATIENT TRANSFERRED TO THE TELEMETRY UNIT ROOM 326 BED 1. PATIENT ON TELE MONITOR ST-106,V/S WNL. UNSTABLE AFIB. PATIENT TOTAL CARE, EDEMA BLE, AND SCROTUM. IV ACCESS ON RIGHT FEMORAL AREA INTACT. GARCIA DRAINING LIGHT YELLOW OUTPUT, SKIN DISCOLORATION ALL OVER TO BODY, AND SKIN TEAR. ASSIST TURN AND REPOSTION Q 2 HR. PATIENT ON SPECIAL AIR MATTRESS. CALL LIGHT WITHIN TO REACH. SAFETY PRECAUTION MAINTAINED ALL THEW TIME. ENDORSED ONCOMING NURSE FOLLOW PLAN OF CARE.
--- NOTE | 2020-05-15 19:30 | NUR ---
TELE/RN OPENING NOTES RECEIVED PATIENT IN BED RESTING. PATIENT IS ALERT AND ORIENTED X 3. NO SIGNS OF SOB OR RESPIRATORY DISTRESS NOTED. PATIENT IS TOLERATING 2L NC. STATES NO PAIN AT THIS TIME. TELE READING ST 104. PATIENT HAS IV ACCESS ON RIGHT FEMORAL TRIPLE LUMEN, FLUSHING WELL, INTACT AT THIS TIME. SAFETY MEASURES ARE IN PLACE, BES IS LOCKED AND PLACED IN THE LOW POSITION, SIDE RAILS UP X 3. CALL LIGHT IS WITHIN REACH. WILL CONTINUE TO MONITOR.
[2020-05-16] VITALS: BP 123/80
[2020-05-16 04:00] VITALS: BP 122/85
--- NOTE | 2020-05-16 04:45 | NUR ---
TELE/RN NOTES LAB CALLED WITH PATIENT BLOOD CX POSITIVE FOR YEAST GROWTH. NOTIFIED DR POLLOCK. PHILL ORDERED FOR DIFLUCAN 100 MG IV. ORDERS PLACED AND CARRIED OUT.
--- NOTE | 2020-05-16 06:50 | NUR ---
TELE/RN CLOSING NOTES PATIENT IN BED RESTING. PATIENT IS ALERT AND ORIENTED X 3. NO SIGNS OF SOB OR RESPIRATORY DISTRESS NOTED. PATIENT IS TOLERATING 2L NC. TELE READING ST 94. PATIENT HAS IV ACCESS ON RIGHT FEMORAL TRIPLE LUMEN, FLUSHING WELL, INTACT AT THIS TIME. F/C OUTPUT 500 CC, INTACT DURING CLEAR URINE. ALL NEEDS MET. SAFETY MEASURES ARE IN PLACE, BES IS LOCKED AND PLACED IN THE LOW POSITION, SIDE RAILS UP X 3. CALL LIGHT IS WITHIN REACH. WILL ENDORSE CARE TO DAY SHIFT NURSE.
[2020-05-16 06:57] LABS: BASOPHILS % (AUTO) 0.2 % (0.0-2.0); EOSINOPHILS % (AUTO) 3.4 % (0.0-6.0); HEMATOCRIT 29 % (39-51); HEMOGLOBIN 9.8 g/dL (13.5-17.5); LYMPHOCYTES # (AUTO) 0.9 /CMM (0.8-4.8); LYMPHOCYTES % (AUTO) 6.8 % (20.0-44.0); MEAN CORPUSCULAR HGB CONC 34 g/dl (31.0-36.0); MEAN CORPUSCULAR VOLUME 102 fL (80-96); MONOCYTES # (AUTO) 0.9 /CMM (0.1-1.30); MONOCYTES % (AUTO) 6.9 % (2.0-12.0); NEUTROPHILS # (AUTO) 10.9 /CMM (1.8-8.9); NEUTROPHILS % (AUTO) 82.7 % (43.0-81.0); PLATELET COUNT (AUTO) 117 /CMM (150-450); RED BLOOD CELL COUNT(AUTO) 2.83 MIL/uL (4.5-6.0); WHITE BLOOD COUNT (AUTO) 13.1 K/uL (4.3-11.0)
[2020-05-16 07:12] LABS: MAGNESIUM 1.9 mg/dL (1.8-2.4); PHOSPHORUS 2.6 mg/dL (2.5-4.9); POTASSIUM 3.6 mmol/L (3.5-5.1)
--- NOTE | 2020-05-16 07:58 | NUR ---
GAS COLLECTION SYSTEM OPERATOR NOTE PATIENT IN BED RESTING COMFORTABLY. PATIENT IN NO ACUTE DISTRESS. NO SOB NOTED. PATIENT BREATHING IS EVEN AND UNLABORED. PATIENT ON CARDIAC MONITORING READING SINUS RHYTHM HR 89. PATIENT HOB IS ELEVATED. PATIENT BED ALARM IS ON. PATIENT SAFETY PRECAUTIONS IN PLACE. PATIENT BED IS LOCKED AND IN LOWEST POSITION. CALL LIGHT WITHIN REACH. WILL CONTINUE TO MONITOR.
[2020-05-16 08:00] VITALS: BP 129/97
[2020-05-16] MEDS: LEVOTHYROXINE SODIUM 50 MCG TABLET PO SCH (08:04)
[2020-05-16] MEDS: PANTOPRAZOLE 40 MG TABLET.DR PO SCH (08:04)
[2020-05-16] MEDS: MEROPENEM 1 G in IV NS 0.9% 100 ML IV SCH ×2 (08:08→20:46)
[2020-05-16] MEDS: Z GUARD REMEDY 2 OZ OINT TP SCH (08:55)
[2020-05-16] MEDS: FLUCONAZOLE IN NS 100 MG in PREMIX 1 EA IV SCH ×2 (10:11)
[2020-05-16 12:00] VITALS: BP 116/79
[2020-05-16 16:07] VITALS: BP 114/75
--- NOTE | 2020-05-16 19:16 | NUR ---
WELT STITCHER NOTE PATIENT IN BED RESTING COMFORTABLY. PATIENT IN NO ACUTE DISTRESS. NO SOB NOTED. PATIENT BREATHING IS EVEN AND UNLABORED. PATIENT ON CARDIAC MONITORING READING SINUS TACHYCARDIA HR 105. EXPLAINED ALL DUE MEDS. PATIENT STATES NO PAIN AT THIS TIME. PATIENT KEPT CLEAN AND DRY. PATIENT HOB IS ELEVATED. PATIENT BED ALARM IS ON. PATIENT SAFETY PRECAUTIONS IN PLACE. PATIENT BED IS LOCKED AND IN LOWEST POSITION. CALL LIGHT WITHIN REACH. WILL ENDORSE CARE TO PM SHIFT FOR CHELSI.
--- NOTE | 2020-05-16 19:30 | NUR ---
CRITICAL CARE CLINICAL NURSE SPECIALIST OPENING NOTE RECEIVED PATIENT IN BED. A/OX3. TOLERATING ROOM AIR. RESPIRATIONS ARE EVEN AND UNLABORED. NO S/S SOB. NO C/O PAIN AT THIS TIME. EXTERNAL TELE MONITOR READS UNCONTROLLED AFIB HR 106. IN NO APPARENT DISTRESS. IV ACCESS IN RIGHT FEMORAL TLC RUNNING TKO. GARCIA CATHETER IS PRESENT, DRAINING TO GRAVITY. BED IS LOW AND LOCKED, HOB ELEVATED IN SEMI FOWLERS SIDE RAILS UP X3, CALL LIGHT WITHIN REACH. WILL CONTINUE TO MONITOR.
[2020-05-16 20:00] VITALS: BP 124/78
[2020-05-17] VITALS: BP 128/91
[2020-05-17 04:00] VITALS: BP 116/78
--- NOTE | 2020-05-17 07:00 | NUR ---
ROASTER OPERATOR CLOSING NOTE PATIENT IN BED. A/OX3. REMAINS TOLERATING ROOM AIR. NO RESP DISTRESS NOTED. NO C/O PAIN THROUGHOUT SHIFT. EXTERNAL TELE MONITOR READS UNCONTROLLED AFIB. NO DISTRESS NOTED. IV ACCESS MAINTAINED IN RIGHT FEMORAL TLC RUNNING TKO. GARCIA CATHETER IS MAINTAINED, DRAINING TO GRAVITY, OUTPUT YELLOW CLEAR 800ML. BED REMAINS LOW AND LOCKED, HOB ELEVATED IN SEMI FOWLERS SIDE RAILS UP X3, CALL LIGHT WITHIN REACH. WILL ENDORSE TO NEXT SHIFT.
--- NOTE | 2020-05-17 08:00 | NUR ---
MAILMASTER NOTES PATIENT IN BED RESTING. NO SOB OR ACUTE DISTRESS NOTED. PATIENT ALERT, ORIENTED X3. PATIENT WITH PICC LINE INTACT, PATENT. PATIENT ALSO WITH GARCIA CATH INTACT PATENT. SAFETY MEASURES IN PLACE WILL CONTINUE TO MONITOR.
[2020-05-17] MEDS: PANTOPRAZOLE 40 MG TABLET.DR PO SCH (08:07)
[2020-05-17] MEDS: LEVOTHYROXINE SODIUM 50 MCG TABLET PO SCH (08:07)
[2020-05-17] MEDS: MEROPENEM 1 G in IV NS 0.9% 100 ML IV SCH (08:07)
[2020-05-17 08:50] LABS: BASOPHILS # (AUTO) 0.1 /CMM (0.0-0.2); BASOPHILS % (AUTO) 0.4 % (0.0-2.0); EOSINOPHILS % (AUTO) 2.4 % (0.0-6.0); HEMATOCRIT 31 % (39-51); HEMOGLOBIN 10.5 g/dL (13.5-17.5); LYMPHOCYTES # (AUTO) 0.9 /CMM (0.8-4.8); LYMPHOCYTES % (AUTO) 7.2 % (20.0-44.0); MEAN CORPUSCULAR HGB CONC 34 g/dl (31.0-36.0); MEAN CORPUSCULAR VOLUME 103 fL (80-96); MONOCYTES # (AUTO) 0.9 /CMM (0.1-1.30); MONOCYTES % (AUTO) 7.3 % (2.0-12.0); NEUTROPHILS # (AUTO) 10.6 /CMM (1.8-8.9); NEUTROPHILS % (AUTO) 82.7 % (43.0-81.0); PLATELET COUNT (AUTO) 170 /CMM (150-450); RED BLOOD CELL COUNT(AUTO) 3.03 MIL/uL (4.5-6.0); WHITE BLOOD COUNT (AUTO) 12.8 K/uL (4.3-11.0)
[2020-05-17 09:08] LABS: CALCIUM, SERUM 8.7 mg/dL (8.5-10.1); MAGNESIUM 2.1 mg/dL (1.8-2.4); PHOSPHORUS 2.6 mg/dL (2.5-4.9); POTASSIUM 3.5 mmol/L (3.5-5.1)
[2020-05-17] MEDS: FUROSEMIDE 100 MG/10 ML VIAL IV SCH ×3 (09:31→17:24)
[2020-05-17] MEDS: Z GUARD REMEDY 2 OZ OINT TP SCH (09:31)
[2020-05-17] MEDS: POTASSIUM CHLORIDE 20 MEQ TAB.PRT.SR PO SCH ×3 (09:31→13:13)
[2020-05-17] MEDS: FLUCONAZOLE IN NS 100 MG in PREMIX 1 EA IV SCH ×2 (09:34)
[2020-05-17] MEDS ORDERED: FLUC100P4 IV (14:28)
[2020-05-17] MEDS ORDERED: MERO1VIA23 IV (14:28)
--- NOTE | 2020-05-17 18:30 | NUR ---
TANKER TRUCK DRIVER NOTES PATIENT DISCHARGED TO [facility] IN STABLE CONDITION. DISCHARGE TEACHING PROVIDED VERBALIZED UNDERSTANDING. PATIENT DISCHARGED WITH CENTRAL LINE AND GARCIA CATH. PATIENT TO CONTINUE IV AT SNF. PATIENT REFUSED DISCHARGE PICTURES. PATIENT VERBALIZED DESIRE TO BE DISCHARGED TO [facility] WHERE HIS FRIENDS ARE AT. EDUCATED PATIENT ON THE IMPORTANCE OF HAVING IV ATB AND THE BENEFITS OF BEING DISCHARGED TO SNF. PATIENT VERBALIZED UNDERSTANDING AND AGREED. MD AWARE OF ABNORMAL LABS AND TESTS. PATIENT DISCHARGED WITH EMT VIA AMBULANCE.
== END 2020-05-17 18:30 | DRG 871 ==
LOC: ER 21:55 → ICU 05-10 01:21 → TELE 05-15 18:44
PROVIDERS: ADMIT Nurse Practitioner Acute Care; ATTEND Nurse Practitioner Acute Care
PROC: 06HY33Z Insertion of Infusion Device into Lower Vein, Percutaneous Approach (ICD-10-PCS; principal; 2020-05-09)
DX: A41.51 Sepsis due to Escherichia coli [E. coli] (principal); E43 Unspecified severe protein-calorie malnutrition; J96.01 Acute respiratory failure with hypoxia; N17.0 Acute kidney failure with tubular necrosis; R65.21 Severe sepsis with septic shock; G92 Toxic encephalopathy; I21.A1 Myocardial infarction type 2; J18.9 Pneumonia, unspecified organism; E87.2 Acidosis; I42.9 Cardiomyopathy, unspecified; N39.0 Urinary tract infection, site not specified; I13.0 Hypertensive heart and chronic kidney disease with heart failure and stage 1 through stage 4 chronic kidney disease, or unspecified chronic kidney disease; B49 Unspecified mycosis; F03.90 Unspecified dementia, unspecified severity, without behavioral disturbance, psychotic disturbance, mood disturbance, and anxiety; D69.6 Thrombocytopenia, unspecified; E03.9 Hypothyroidism, unspecified; D64.9 Anemia, unspecified; E87.6 Hypokalemia; I48.91 Unspecified atrial fibrillation; N40.1 Benign prostatic hyperplasia with lower urinary tract symptoms; Z86.73 Personal history of transient ischemic attack (TIA), and cerebral infarction without residual deficits; I50.9 Heart failure, unspecified; E88.09 Other disorders of plasma-protein metabolism, not elsewhere classified; N31.9 Neuromuscular dysfunction of bladder, unspecified; Z20.828 Contact with and (suspected) exposure to other viral communicable diseases; Z86.718 Personal history of other venous thrombosis and embolism; Z68.22 Body mass index [BMI] 22.0-22.9, adult; L89.156 Pressure-induced deep tissue damage of sacral region; L89.316 Pressure-induced deep tissue damage of right buttock; S71.012A Laceration without foreign body, left hip, initial encounter; X58.XXXA Exposure to other specified factors, initial encounter; Y93.9 Activity, unspecified; Y92.129 Unspecified place in nursing home as the place of occurrence of the external cause; N18.9 Chronic kidney disease, unspecified; Z79.01 Long term (current) use of anticoagulants
CPT/HCPCS: 36415; 36600; 70450-TC; 71045-TC; 76770-TC; 80048-TC; 80053-TC; 80061-TC; 80076-TC; 80162-TC; 80202-TC; 81001; 82533; 82550-TC; 82570-TC; 82728-TC; 82803-TC; 83540-TC; 83605-TC; 83735-TC; 83880; 84100-TC; 84155-TC; 84300-TC; 84439-TC; 84443-TC; 84484-TC; 85025-TC; 85378-TC; 85730-TC; 87040-TC; 87081-TC; 87086-TC; 87186-TC; 92526; 92611-TC; 93307-TC; 94799-TC; A4216; A6253; C1751; C9113; C9803; G0378; J0696; J1160; J1450; J1650; J1720; J1940; J1956; J2060; J2185; J2543; J3370; J3475; J3480; J3490; J7030; J7050; J7060; U0003